=== PATIENT | female | born 1950 | race Caucasian/White ===

== ENCOUNTER 2016-09-05 07:49 | Inpatient (IN) | payer OTHER, MEDICARE ==
[2016-08-25 13:28] VITALS: BMI 20.3
--- NOTE | 2016-09-04 10:39 | HP ---
Satellite [facility] - Chief Complaint Chief Complaint: left hip pain - Past Medical History Allergies/Adverse Reactions: Allergies Allergy/AdvReac Type Severity Reaction Status Date / Time codeine Allergy Severe Itching Verified 08/25/16 13:29 - Current Medications Current Medications: Home Medications Medication Instructions Recorded Lisinopril/Hydrochlorothiazide 1 tab PO DAILY 08/25/16 [Lisinopril-Hctz 20-12.5 mg Tab] Metformin HCl 500 mg PO DAILY 08/25/16 Rosuvastatin Calcium [Crestor] 10 mg PO HS 08/25/16 Satellite Physical Exam - Physical Examination General Appearance: Well Nourished, Well Developed, Alert & Oriented x3 ENT: Clear Lung: Normal air movement Heart: Regular rate & rhythm Extremities: Other (left hip- + ttp, dec rom, nvi xrays show severe hip djd) Neurological: Intact, Alert, Oriented Satellite Impression/Plan - Impression/Plan Impression: left hip djd Operative Procedure: left allyson thr Date to be Performed: 09/05/16
[~2016-09-05 07:49] MED LIST: CEFAZOLIN 1 GM/D5W 50 ML IVPB ONE; TRANEXAMIC ACID 1000 MG/10 ML VIAL IVPUSH ONE
[2016-09-05] MEDS: CELECOXIB 200 MG CAPSULE PO ONE ×2 (08:15→20:13)
[2016-09-05] MEDS: GABAPENTIN 300 MG CAPSULE (FP) PO ONE ×2 (08:15→20:13)
[2016-09-05] MEDS ORDERED: VANCOMYCIN 1,000 MG VIAL (RESTRICTED TO ID ONLY) ONE (08:30)
[2016-09-05] MEDS ORDERED: TRANEXAMIC ACID 1000 MG/10 ML VIAL ONE ×2 (08:30→11:51)
[2016-09-05] MEDS ORDERED: ceFAZolin SODIUM 1 GM VIAL ONE ×2 (08:30→09:09)
[2016-09-05] MEDS ORDERED: PROPOFOL 20 ML ONE ×4 (09:04→10:55)
[2016-09-05] MEDS ORDERED: MIDAZOLAM HCL 2 MG/2 ML SINGLE DOSE VIAL ONE ×2 (09:05→11:46)
[2016-09-05] MEDS ORDERED: SODIUM CHLORIDE 0.9% P/F 10 ML VIAL IJ ONE (09:09)
[2016-09-05] MEDS ORDERED: LIDOCAINE HCL 1%, 10 MG/ML (20ML VIAL) ONE (09:21)
[2016-09-05] MEDS ORDERED: MAG HYDROX/AL HYDROX/SIMETH 30 ML UNIT-DOSE CUP PO PRN (12:26)
[2016-09-05] MEDS ORDERED: MAGNESIUM HYDROX 2400MG/30ML ORAL SUSPENSION 30 ML CUP PO PRN (12:26)
[2016-09-05] MEDS ORDERED: ONDANSETRON 4 MG/2 ML VIAL IVPB PRN (12:26)
[2016-09-05] MEDS ORDERED: LACTATED RINGERS SOLUTION 1,000 ML IV SCH ×2 (12:30→13:00)
--- NOTE | 2016-09-05 12:31 | OP ---
Operative Note - Note: Operative Date: 09/05/16 (baldemar) Pre-Operative Diagnosis: left hip djd Operation: left allyson thr Post-Operative Diagnosis: Same as Pre-op Surgeon: Gene Richter Dietitian Therapeutic: Moises Ruiz Anesthesiologist/AIRCRAFT SYSTEMS TECHNICIAN: Carlos Isaac Anesthesia: Spinal, Local Specimens Removed: femoral head Estimated Blood Loss (mls): 150 Operative Report Dictated: Yes
[2016-09-05] MEDS ORDERED: VANCOMYCIN 1,000 MG VIAL (RESTRICTED TO ID ONLY) IVPB ONE (12:38)
[2016-09-05] MEDS ORDERED: ONDANSETRON 4 MG/2 ML VIAL IVPUSH PRN (12:53)
[2016-09-05] MEDS ORDERED: PROMETHAZINE HCL 25 MG/1 ML VIAL IVPUSH PRN (12:53)
[2016-09-05] MEDS: ACETAMINOPHEN 325 MG TABLET (FP) PO SCH ×3 (14:00→20:50)
[2016-09-05] MEDS: INSULIN SLIDING SCALE (NOVOLOG) 1 VIAL SQ SCH ×2 (16:24→23:01)
[2016-09-05] MEDS ORDERED: INSULIN (NOVOLOG) ASPART 100 UNITS/ML 10ML VIAL ONE (16:28)
[2016-09-05] MEDS: oxyCODONE HCL 5 MG TABLET PO PRN (17:00)
[2016-09-05] MEDS: CEFAZOLIN 2 GM/D5W 50 ML IVPB SCH (17:19)
[2016-09-05] MEDS: ROSUVASTATIN CA 10 MG TABLET (FP) PO SCH (22:43)
[2016-09-05] MEDS: SENNOSIDES/DOCUSATE COMBO (SENNA PLUS) TABLET (UD) PO SCH (22:43)
[2016-09-05] MEDS: oxyCODONE HCL 10 MG SUSTAINED ACTING TABLET PO SCH (22:44)
[2016-09-05] MEDS: GABAPENTIN 300 MG CAPSULE (FP) PO SCH (23:01)
[2016-09-06] MEDS: ACETAMINOPHEN 325 MG TABLET (FP) PO SCH ×4 (02:19→21:28)
[2016-09-06] MEDS: CEFAZOLIN 2 GM/D5W 50 ML IVPB SCH (02:20)
[2016-09-06] MEDS: INSULIN SLIDING SCALE (NOVOLOG) 1 VIAL SQ SCH ×4 (06:49→22:52)
--- NOTE | 2016-09-06 07:40 | PN ---
Progress Note (short form) - Note Progress Note: Ortho Pt seen and examined s/p left allyson thr pod #1 Selected Entries 09/06/16 06:00 Temperature 98.3 F Pulse Rate 64 Respiratory 19 Rate Blood Pressure 95/58 dressing c/d/i, calf soft, nt nvi cbc pending a/p PT hip precautions dvt ppx pain control d/c home tomorrow if stable
[2016-09-06] MEDS: metFORMIN HCL 500 MG TABLET (FP) PO SCH (07:45)
[2016-09-06] MEDS: ASPIRIN 325 MG TABLET PO SCH (08:25)
[2016-09-06] MEDS: oxyCODONE HCL 5 MG TABLET PO PRN ×3 (08:28→21:30)
[2016-09-06 08:39] LABS: MCH 29.5 pg (25.7-33.7); MCHC 33.8 g/dl (32.0-36.0); MEAN CELL VOLUME 87.4 fl (80-96); MEAN PLT VOLUME 10.2 fl (7.5-11.1); PLATELET COUNT 224 K/MM3 (134-434); RDW 12.7 % (11.6-15.6); WHITE BLOOD COUNT 11.1 K/mm3 (4.0-10.8)
[2016-09-06] MEDS ORDERED: BENZOCAINE/MENTH/CETYLPYRD CL 1 EACH LOZENGE MM PRN (09:13)
[2016-09-06] MEDS: SENNOSIDES/DOCUSATE COMBO (SENNA PLUS) TABLET (UD) PO SCH ×2 (09:16→21:30)
[2016-09-06] MEDS: oxyCODONE HCL 10 MG SUSTAINED ACTING TABLET PO SCH ×2 (09:16→21:27)
[2016-09-06] MEDS: GABAPENTIN 300 MG CAPSULE (FP) PO SCH ×2 (09:17→21:28)
--- NOTE | 2016-09-06 09:19 | PN ---
Progress Note (short form) - Note Progress Note: ANESTHESIOLOGY POST-OP CHECK 66F s/p left hip replacement under spinal anesthesia with L1 and L2 left paravertebral blocks, POD #1. C/o of some sore throat, hip pain minimal, denies N/V, headache, backache, numbness, weakness. Ambulating, voiding, tolerating PO. Vital Signs Temperature 98.3 F 09/06/16 06:00 Pulse Rate 64 09/06/16 06:00 Respiratory Rate 19 09/06/16 08:44 Blood Pressure 95/58 09/06/16 06:00 O2 Sat by Pulse Oximetry (%) 100 09/06/16 08:44 Active Medications Acetaminophen (Tylenol -) 650 mg PO Q6H [facility] Stop: 09/08/16 13:44 Last Admin: 09/06/16 08:29 Dose: 650 mg Al Hydroxide/Mg Hydroxide (Mylanta Oral Suspension -) 30 ml PO Q4H PRN PRN Reason: DYSPEPSIA Aspirin (Asa -) 325 mg PO DAILY@0800 [facility] Last Admin: 09/06/16 08:25 Dose: 325 mg Benzocaine/Menthol (Cepacol Lozenge -) 1 each MM PRN PRN PRN Reason: SORE THROAT Fentanyl (Sublimaze Injection -) 50 mcg IVPUSH [id number] PRN PRN Reason: PAIN Stop: 09/08/16 12:54 Gabapentin (Neurontin -) 300 mg PO BID [facility] Last Admin: 09/06/16 09:17 Dose: 300 mg Hydrochlorothiazide (Hctz -) 12.5 mg PO DAILY [facility] Lactated Ringer's (Lactated Ringers Solution) 1,000 mls @ 125 mls/hr IV ASDIR [facility] Last Admin: 09/05/16 20:13 Dose: Not Given Insulin Aspart (Novolog Vial Sliding Scale -) 1 vial SQ ACHS [facility] PRN Reason: Protocol Last Admin: 09/06/16 06:49 Dose: Not Given Lisinopril (Prinivil) 20 mg PO DAILY [facility] Magnesium Hydroxide (Milk Of Magnesia -) 30 ml PO PRN PRN PRN Reason: CONSTIPATION Metformin HCl (Glucophage -) 500 mg PO ACBK [facility] Last Admin: 09/06/16 07:45 Dose: 500 mg Multivitamins/Minerals/Vitamin C (Tab-A-Vit -) 1 tab PO DAILY [facility] Ondansetron HCl (Zofran Injection) 4 mg IVPB Q6H PRN PRN Reason: NAUSEA Oxycodone HCl (Oxycontin -) 10 mg PO BID [facility] Stop: 09/08/16 13:34 Last Admin: 09/06/16 09:16 Dose: 10 mg Oxycodone HCl (Roxicodone -) 5 mg PO Q3H PRN PRN Reason: PAIN LEVEL 1-5 Last Admin: 09/06/16 08:28 Dose: 5 mg Oxycodone HCl (Roxicodone -) 10 mg PO Q3H PRN PRN Reason: PAIN LEVEL 6-10 Last Admin: 09/05/16 17:00 Dose: 10 mg Pantoprazole Sodium (Protonix -) 40 mg PO DAILY [facility] Rosuvastatin Calcium (Crestor -) 10 mg PO HS [facility] Last Admin: 09/05/16 22:43 Dose: 10 mg Senna/Docusate Sodium (Pericolace -) 2 tablet PO BID [facility] Last Admin: 09/06/16 09:16 Dose: 2 tablet Gen: awake, alert Ext: No motor or sensory deficits of B/L lower ext No apparent anesthesia complications. Pain well controlled. Sore throat may be from cough or throat dryness from supplemental O2 via nasal cannula but no airway instrumentation was performed in operating room. Cepacol lozenges PRN ordered. Coninue management as per primary team.
[2016-09-06] MEDS: HYDROCHLOROTHIAZIDE 12.5 MG CAPSULE (FP) PO SCH (09:29)
[2016-09-06] MEDS: PANTOPRAZOLE 40 MG TABLET (FP) PO SCH (09:29)
[2016-09-06] MEDS: MULTIVITAMINS (DAILY MVI) TABLET (FP) PO SCH (09:29)
[2016-09-06] MEDS: LISINOPRIL 20 MG TABLET (FP) PO SCH (09:39)
[2016-09-06] MEDS ORDERED: PATIENT'S OWN MEDICATION (NON-FORMULARY) (Lisinopril/Hydrochlorothiazide [Lisinopril-Hctz PO SCH (10:00)
--- NOTE | 2016-09-06 10:46 | SPEC ---
DATE OF OPERATION: 09/05/2016 PREOPERATIVE DIAGNOSIS: Degenerative joint disease, left hip. POSTOPERATIVE DIAGNOSIS: Degenerative joint disease, left hip. PROCEDURE: Left total hip replacement with robotic-assisted navigation. SURGICAL ATTENDING: Gene Richter MD FLIGHT TEST SHOP MECHANIC: LILLIAN Lombardi ANESTHESIA: Spinal and regional. CLOSURE: A number 6 Accolade 2 femoral stem, a standard 36-mm metallic femoral head, a 52 press-fit Tritanium acetabulum all from Iva. No. 1 Vicryl for fascia, 0 and 2-0 for subcutaneous, 3-0 Monocryl subcuticular and skin glue for skin, 4-0 undyed Vicryl for pin sites. ESTIMATED BLOOD LOSS: Less than 100 mL. COMPLICATIONS: None. CONDITION: To recovery room in stable condition. DESCRIPTION OF OPERATIVE PROCEDURE: The patient was taken to the operating room. Spinal anesthesia as well as sciatic block was administered by the anesthesiologist. The IV Kefzol and TXA were administered prophylactically prior to the case. The patient was placed in the lateral decubitus position with all prominences well-padded. An EKG pad was secured to the inferior pole of the patella for limb length calculations intraoperatively. The left hip area was prepped and draped in the usual sterile fashion. A 12.0-15.0 cm curved longitudinal incision over the posterolateral aspect of the greater trochanter was made. Hemostasis was achieved with Bovie cautery. Sharp dissection was carried down to the level of the fascia. The fascia was opened the entire length of the incision, spreading the gluteus jose fibers in the direction of their origin. A Charnley retractor was placed in this layer, and care was taken to be far away from the sciatic nerve. The short external rotators were detached off the insertion of the greater trochanter and peeled off the capsule. A posterior capsulectomy was then performed. A checkpoint was malleted into the greater trochanter. Three small stab incisions were done on the iliac crest. Through these stab incisions, threaded guide pins were drilled into the iliac crest. These pins were fastened to the navigation array. The check point on the greater trochanter and the EKG pad on the inferior pole of the patella were used to measure preoperative limb length and offset. The hip was then dislocated. The hip was osteotomized at the appropriate level as directed by the preoperative template. Anterior and posterior retractors were placed around the acetabulum. Circumferential labrum was excised. A checkpoint was malleted into the acetabulum superiorly. The acetabulum was then registered with the navigation device with multiple sites within the acetabulum and around the rim of the acetabulum. It was then confirmed popping the blue bubbles, confirming ideal position and confirmation of adequate registration with the navigation device. Using a 48 reamer, which was decided preoperatively on the preoperative template, the robotic arm was brought into the field and was used to ream the acetabulum down to the appropriate depth with the appropriate orientation and inversion applied. After reaming, a good hemispherical bleeding surface was encountered in the acetabulum. A FAUSTINA shell of the appropriate size was then malleted into place achieving excellent fit. Confirmation of the appropriate orientation and inversion was confirmed using the probe, and assuring that the acetabular cup was placed in the ideal position as templated preoperatively. A real liner was then clipped into place with a 10-degree lip in the posterior-superior quadrant. Anterior and posterior osteophytes were removed using osteotome. Next, our attention was directed to the femur. The proximal femur was opened with a box chisel, rat-tail, anchovy and serial reamers. This was done until the appropriate reamer achieved good fit and fill of the proximal femur. A trial reduction with the appropriate neck and head, as again measured from our preoperative template, was performed. Limb lengths were confirmed both visually and using the navigation device, again measuring the inferior pole of the patella and the checkpoint of the greater trochanter. This confirmed ideal position of the femoral component, lengths and offset. The trial components were removed. The real component was malleted into place. The head was cold-welded to the Charnley and the hip was reduced. Again, the hip was found to have equal limb lengths as described previously. The hip was also taken through a range of motion and found to be stable in external rotation and extension, was stable in marked flexion, stable in adduction and internal rotation, and had a positive hang test and negative telescoping. The hip was irrigated with copious amounts of irrigation. Hemostasis was achieved. Vancomycin powder was sprinkled into the joint. A second dose of TXA was administered. The fascia was closed with No. 1 Vicryl interrupted suture, 0 and 2-0 for subcutaneous, and 3-0 Monocryl subcuticular for skin with skin glue. This was followed by an Aquacel dressing. The patient was flipped into the supine position. Bilateral SCDs and an abduction pillow were applied. X-rays showed good position of the components. The patient was awakened from anesthesia and transferred to the recovery room in stable condition. Lisandro [id number]
--- NOTE | 2016-09-06 13:05 | PN ---
Progress Note, Physician Chief Complaint: s/p left total hip replacement FAUSTINA History of Present Illness: p/o day one, under spinal anesthesia, peripheral nerve block for post op pain control - Current Medication List Current Medications: Active Medications Acetaminophen (Tylenol -) 650 mg PO Q6H [facility] Stop: 09/08/16 13:44 Last Admin: 09/06/16 08:29 Dose: 650 mg Al Hydroxide/Mg Hydroxide (Mylanta Oral Suspension -) 30 ml PO Q4H PRN PRN Reason: DYSPEPSIA Aspirin (Asa -) 325 mg PO DAILY@0800 [facility] Last Admin: 09/06/16 08:25 Dose: 325 mg Benzocaine/Menthol (Cepacol Lozenge -) 1 each MM PRN PRN PRN Reason: SORE THROAT Fentanyl (Sublimaze Injection -) 50 mcg IVPUSH [id number] PRN PRN Reason: PAIN Stop: 09/08/16 12:54 Gabapentin (Neurontin -) 300 mg PO BID [facility] Last Admin: 09/06/16 09:17 Dose: 300 mg Hydrochlorothiazide (Hctz -) 12.5 mg PO DAILY [facility] Last Admin: 09/06/16 09:29 Dose: 12.5 mg Lactated Ringer's (Lactated Ringers Solution) 1,000 mls @ 125 mls/hr IV ASDIR [facility] Last Admin: 09/05/16 20:13 Dose: Not Given Insulin Aspart (Novolog Vial Sliding Scale -) 1 vial SQ ACHS [facility] PRN Reason: Protocol Last Admin: 09/06/16 06:49 Dose: Not Given Lisinopril (Prinivil) 20 mg PO DAILY [facility] Last Admin: 09/06/16 09:39 Dose: 20 mg Magnesium Hydroxide (Milk Of Magnesia -) 30 ml PO PRN PRN PRN Reason: CONSTIPATION Metformin HCl (Glucophage -) 500 mg PO ACBK [facility] Last Admin: 09/06/16 07:45 Dose: 500 mg Multivitamins/Minerals/Vitamin C (Tab-A-Vit -) 1 tab PO DAILY [facility] Last Admin: 09/06/16 09:29 Dose: 1 tab Ondansetron HCl (Zofran Injection) 4 mg IVPB Q6H PRN PRN Reason: NAUSEA Oxycodone HCl (Oxycontin -) 10 mg PO BID [facility] Stop: 09/08/16 13:34 Last Admin: 09/06/16 09:16 Dose: 10 mg Oxycodone HCl (Roxicodone -) 5 mg PO Q3H PRN PRN Reason: PAIN LEVEL 1-5 Last Admin: 09/06/16 08:28 Dose: 5 mg Oxycodone HCl (Roxicodone -) 10 mg PO Q3H PRN PRN Reason: PAIN LEVEL 6-10 Last Admin: 09/05/16 17:00 Dose: 10 mg Pantoprazole Sodium (Protonix -) 40 mg PO DAILY [facility] Last Admin: 09/06/16 09:29 Dose: 40 mg Rosuvastatin Calcium (Crestor -) 10 mg PO HS [facility] Last Admin: 09/05/16 22:43 Dose: 10 mg Senna/Docusate Sodium (Pericolace -) 2 tablet PO BID [facility] Last Admin: 09/06/16 09:16 Dose: 2 tablet - Objective Vital Signs: Vital Signs Temperature 98.3 F 09/06/16 06:00 Pulse Rate 64 09/06/16 06:00 Respiratory Rate 19 09/06/16 08:44 Blood Pressure 95/58 09/06/16 06:00 O2 Sat by Pulse Oximetry (%) 100 09/06/16 08:44 Constitutional: Yes: Well Nourished, No Distress Cardiovascular: Yes: WNL Respiratory: Yes: WNL Gastrointestinal: Yes: WNL Labs: CBC, BMP 09/06/16 07:00 Assessment/Plan pain controlled, no nausea or vomiting, complaining of sore throat, getting better, no other complaints or anesthetic complications. Dept of anesthesia will sign off care at this time
[2016-09-06] MEDS: ROSUVASTATIN CA 10 MG TABLET (FP) PO SCH (21:28)
[2016-09-07] MEDS: ACETAMINOPHEN 325 MG TABLET (FP) PO SCH ×2 (01:45→08:25)
[2016-09-07] MEDS: metFORMIN HCL 500 MG TABLET (FP) PO SCH (06:06)
[2016-09-07 06:14] VITALS: TEMP 98.4
[2016-09-07] MEDS: oxyCODONE HCL 5 MG TABLET PO PRN (07:18)
[2016-09-07 08:14] VITALS: BP 95/52; PULSE 65
--- NOTE | 2016-09-07 08:15 | PN ---
Progress Note (short form) - Note Progress Note: Ortho Pt seen and examined s/p left allyson thr pod #2 Selected Entries 09/07/16 06:00 Temperature 98.4 F Pulse Rate 66 Respiratory 18 Rate Blood Pressure 102/63 Laboratory Tests 09/06/16 07:00 WBC 11.1 H Hgb 11.9 Hct 35.3 Plt Count 224 dressing c/d/i, calf soft, nt nvi a/p PT hip precautions dvt ppx pain control d/c home today f/u in 1 week
--- NOTE | 2016-09-07 08:16 | DS ---
Physical Examination Vital Signs: Vital Signs Temperature 98.4 F 09/07/16 06:00 Pulse Rate 65 09/07/16 08:13 Respiratory Rate 18 09/07/16 06:00 Blood Pressure 95/52 09/07/16 08:13 O2 Sat by Pulse Oximetry (%) 99 09/07/16 06:00 Discharge Summary Reason For Visit: OSTEOARTHRITIS Procedures: Principal: s/p left allyson thr Hospital Course: admitted for elective left allyson thr, uneventful post-op, stable fro d/c Condition: Good - Instructions Diet, Activity, Other Instructions: Post-op Instructions-Total Hip Replacement Call the office for a follow-up appointment in 1 week - [phone] Aspirin 325mg daily for 6 weeks. Pain medication was sent into your pharmacy. Apply Graduated Compression Stockings (TEDs) to both lower extremities- remove daily for hygiene ONLY Apply Sequential Compression Device (SCDs) to both Lower extremities remove for PT and hygiene ONLY Apply cold packs to affected area for 15 minutes every 2 hours. Physical Therapist will come to your home for the first 5 days. You will be set up with outpatient PT at your first post-operative visit. Patient may ambulate as tolerated-encourage self care (at least every 2-3 hours while awake) with walker or cane Maintain Aquacel (waterproof) dressing to operative wound (will be removed by surgeon at first office visit) Shower with Aquacel dressing in place-if Aquacel integrity compromised, remove and apply dry sterile dressing and notify Orthopedist. DO NOT SHOWER unless Orthopedists approves without Aquacel dressing CONTACT THE OFFICE FOR ANY CHANGE IN YOUR CONDITION (for example-fever greater than 102 degrees,excessive bleeding from operative site, purulent drainage, severe swelling or pain) GO TO THE EMERGENCY ROOM IF THERE IS A MEDICAL EMERGENCY Hip Precautions: * Keep a rolled towel under affected heel while in bed or chair (to keep knee in extension) * Dependent upon approach: * Posterior - do not cross legs; do not sit on low chairs or toilets. * If you have any questions, please do not hesitate to call the office - . Referrals: Gene Richter MD [Staff Physician] - Disposition: VNS/HOME HEALTH CARE - Home Medications Comprehensive Discharge Medication List: Ambulatory Orders Lisinopril/Hydrochlorothiazide [Lisinopril-Hctz 20-12.5 mg Tab] 1 tab PO DAILY 08/25/16 Metformin HCl 500 mg PO DAILY 08/25/16 Rosuvastatin Calcium [Crestor] 10 mg PO HS 08/25/16 Aspirin [ASA -] 325 mg PO DAILY@0800 tablet 09/05/16 Oxycodone HCl/Acetaminophen [Percocet 5-325 mg Tablet -] 1 - 2 tab PO Q6H #50 tab [facility]D 8 09/05/16
[2016-09-07] MEDS: ASPIRIN 325 MG TABLET PO SCH (08:25)
[2016-09-07] MEDS: INSULIN SLIDING SCALE (NOVOLOG) 1 VIAL SQ SCH ×2 (08:29→11:32)
[2016-09-07 08:48] LABS: MCH 28.9 pg (25.7-33.7); MCHC 33.3 g/dl (32.0-36.0); MEAN CELL VOLUME 86.8 fl (80-96); MEAN PLT VOLUME 10.4 fl (7.5-11.1); PLATELET COUNT 200 K/MM3 (134-434); RDW 12.8 % (11.6-15.6); WHITE BLOOD COUNT 10.7 K/mm3 (4.0-10.8)
[2016-09-07] MEDS: PANTOPRAZOLE 40 MG TABLET (FP) PO SCH (09:25)
[2016-09-07] MEDS: LISINOPRIL 20 MG TABLET (FP) PO SCH (09:26)
[2016-09-07] MEDS: oxyCODONE HCL 10 MG SUSTAINED ACTING TABLET PO SCH (09:26)
[2016-09-07] MEDS: GABAPENTIN 300 MG CAPSULE (FP) PO SCH (09:26)
[2016-09-07] MEDS: SENNOSIDES/DOCUSATE COMBO (SENNA PLUS) TABLET (UD) PO SCH (09:26)
[2016-09-07] MEDS: HYDROCHLOROTHIAZIDE 12.5 MG CAPSULE (FP) PO SCH (09:31)
[2016-09-07] MEDS: MULTIVITAMINS (DAILY MVI) TABLET (FP) PO SCH (09:31)
--- NOTE | 2016-09-07 12:01 | PATH ---
Surgical Pathology Report Patient Name: BOYD PENN Med. Rec. #: [id number] /Age/Gender: 1950 (Age: 66) / F Account: [id number] Location: [facility] Taken: 09/05/2016 Received: 09/05/2016 Reported: 09/07/2016 Physicians: Gene Richter M.D. Specimen(s) Received LEFT FEMORAL HEAD Clinical History Left hip osteoarthritis Final Diagnosis BONE, LEFT FEMORAL HEAD, REPLACEMENT: DEGENERATIVE JOINT DISEASE. Electronically Signed Bahman Licona M.D. Gross Description Received in formalin, labeled "left femoral head," is a 4.2 x 4.2 x 4.0 cm. femoral head with a 1 cm in length portion of femoral neck attached. The margin of resection is smooth. No areas of eburnation are identified. The articular surface is taylor-yellow and focally nodular and granular. The underlying trabecular bone is yellow and hard. A community representative section is submitted in one cassette, following decalcification. 09/06/2016 [facility]09/06/2016
== END 2016-09-07 14:18 | disposition home health service (06) | DRG 470 ==
LOC: FM/S 07:49 → EDBD 12:30 → FM/S 16:12
PROVIDERS: ADMIT Orthopaedic Surgery; ATTEND Orthopaedic Surgery
PROC: 8E0W0CZ Robotic Assisted Procedure of Trunk Region, Open Approach (ICD-10-PCS; 2016-09-05)
PROC: 0SRB0JA Replacement of Left Hip Joint with Synthetic Substitute, Uncemented, Open Approach (ICD-10-PCS; principal; 2016-09-05 11:15)
DX: M16.12 Unilateral primary osteoarthritis, left hip (principal); I10 Essential (primary) hypertension; E78.5 Hyperlipidemia, unspecified; R73.9 Hyperglycemia, unspecified
CPT/HCPCS: 36415; 73502-TC-LT; 73700-TC-RT; 85027; 88304-TC; 88311-TC; 94010; 94760; 97116-GP; 97162-PG